=== PATIENT | female | born 1955 | race Caucasian/White ===

== ENCOUNTER → 2016-05-29 | Outpatient (CLI) | payer BC ==
[2016-05-29 14:05] LABS: ALT/SGPT 104 U/L (12-78); AST/SGOT 66 U/L (15-37); BLOOD UREA NITROGEN 12 mg/dl (7-18); BUN/CREATININE RATIO 22.8 (10-20); CALCIUM 9.2 mg/dl (8.5-10.1); CARBON DIOXIDE 28 mmol/L (21-32); CHLORIDE 101 mmol/L (98-107); CHOLESTEROL 191 mg/dl (0-200); CREATININE 0.53 mg/dl (0.60-1.20); GLUCOSE 127 mg/dl (70-99); POTASSIUM 3.5 mmol/L (3.5-5.1); SODIUM 140 mmol/L (136-145)
[2016-05-29 14:16] LABS: HDL CHOLESTEROL 48 mg/dl; LDL CHOLESTEROL CALCULATED 110 mg/dl; TRIGLYCERIDES 166 mg/dl (0-150); VERY LOW DENSITY LIPOPROT CALC 33 mg/dl
== END | disposition home or self-care (01) ==
LOC: C.LABMFLN 10:20
PROVIDERS: ATTEND Family Medicine
DX: I10 Essential (primary) hypertension (principal); E78.00 Pure hypercholesterolemia, unspecified; R74.0 Nonspecific elevation of levels of transaminase and lactic acid dehydrogenase [LDH]

== ENCOUNTER → 2016-10-03 | Outpatient (CLI) | payer BC ==
[2016-10-03 18:31] LABS: ALT/SGPT 136 U/L (12-78); AST/SGOT 124 U/L (15-37); BLOOD UREA NITROGEN 11 mg/dl (7-18); BUN/CREATININE RATIO 18.3 (10-20); CALCIUM 9.4 mg/dl (8.5-10.1); CARBON DIOXIDE 30 mmol/L (21-32); CHLORIDE 104 mmol/L (98-107); CHOLESTEROL 228 mg/dl (0-200); GLUCOSE 105 mg/dl (70-99); POTASSIUM 3.9 mmol/L (3.5-5.1); SODIUM 139 mmol/L (136-145); TRIGLYCERIDES 144 mg/dl (0-150); VERY LOW DENSITY LIPOPROT CALC 29 mg/dl
[2016-10-03 18:33] LABS: ALB/GLOB RATIO 0.9 (0.9-2); ALKALINE PHOSPHATASE 130 U/L (45-117); CHOLESTEROL/HDL RATIO 4.8; HDL CHOLESTEROL 48 mg/dl; LDL CHOLESTEROL CALCULATED 151 mg/dl
[2016-10-04 06:11] LABS: ESTIMATED AVERAGE GLUCOSE 143 mg/dl; HA1C FLAG Normal (Normal)
== END | disposition home or self-care (01) ==
LOC: C.LABMFLN 14:38
PROVIDERS: ATTEND Family Medicine
DX: E78.00 Pure hypercholesterolemia, unspecified (principal); R73.03 Prediabetes; I10 Essential (primary) hypertension

== ENCOUNTER → 2016-10-04 | Outpatient (CLI) | payer BC ==
[2016-10-04 14:11] LABS: URINE APPEARANCE CLOUDY (CLEAR); URINE BILIRUBIN NEG (NEG); URINE COLOR YELLOW; URINE EPITHELIAL CELL AUTO >30 /lpf (0-5); URINE NITRITE NEG (NEG); URINE PH 5.5 (4.5-7.5); URINE SPECIFIC GRAVITY 1.026 (1.000-1.030); UROBILINOGEN NEG (NEG)
[2016-10-04 14:19] LABS: MANUAL MICROSCOPIC REQUIRED? NO; REVIEW REQ? YES
== END | disposition home or self-care (01) ==
LOC: C.LABMFLN 10:32
PROVIDERS: ATTEND Family Medicine
DX: R10.2 Pelvic and perineal pain (principal)

== ENCOUNTER → 2016-11-21 | Outpatient (CLI) | payer BC | END | disposition home or self-care (01) | LOC: C.LABMFLN 11:36 | PROVIDERS: ATTEND Family Medicine | DX: R73.03 Prediabetes (principal); R74.0 Nonspecific elevation of levels of transaminase and lactic acid dehydrogenase [LDH] ==

== ENCOUNTER → 2017-04-20 | Outpatient (CLI) | payer BC ==
[2017-04-20 13:10] LABS: HEMOGLOBIN A1C 6.2 % (4.5-5.6)
[2017-04-20 13:14] LABS: ALBUMIN 3.7 gm/dl (3.4-5.0); ALT/SGPT 126 U/L (12-78); AST/SGOT 88 U/L (15-37); BLOOD UREA NITROGEN 12 mg/dl (7-18); CALCIUM 9.4 mg/dl (8.5-10.1); CARBON DIOXIDE 32 mmol/L (21-32); CHOLESTEROL 336 mg/dl (0-200); CREATININE 0.65 mg/dl (0.60-1.20); GLUCOSE 131 mg/dl (70-99); SODIUM 137 mmol/L (136-145)
[2017-04-20 13:17] LABS: ALKALINE PHOSPHATASE 113 U/L (45-117); LDL CHOLESTEROL CALCULATED 256 mg/dl; TOTAL PROTEIN 8.2 gm/dl (6.4-8.2)
== END | disposition home or self-care (01) ==
LOC: C.LABMFLN 09:13
PROVIDERS: ATTEND Family Medicine
DX: E78.00 Pure hypercholesterolemia, unspecified (principal); R73.03 Prediabetes; R74.0 Nonspecific elevation of levels of transaminase and lactic acid dehydrogenase [LDH]; I10 Essential (primary) hypertension

== ENCOUNTER → 2017-11-12 | Outpatient (CLI) | payer BC ==
[2017-11-12 17:59] LABS: ALBUMIN 3.6 gm/dl (3.4-5.0); ALKALINE PHOSPHATASE 119 U/L (45-117); ALT/SGPT 43 U/L (12-78); AST/SGOT 28 U/L (15-37); BLOOD UREA NITROGEN 12 mg/dl (7-18); CALCIUM 9.3 mg/dl (8.5-10.1); CARBON DIOXIDE 28 mmol/L (21-32); CHOLESTEROL 275 mg/dl (0-200); CREATININE 0.61 mg/dl (0.60-1.20); GLUCOSE 106 mg/dl (70-99); LDL CHOLESTEROL CALCULATED 200 mg/dl; POTASSIUM 4.2 mmol/L (3.5-5.1); SODIUM 139 mmol/L (136-145); TOTAL PROTEIN 7.7 gm/dl (6.4-8.2)
[2017-11-13 05:39] LABS: HEMOGLOBIN A1C 6.1 % (4.5-5.6)
== END | disposition home or self-care (01) ==
LOC: C.LABMFLN 11:12
PROVIDERS: ATTEND Family Medicine
DX: E78.00 Pure hypercholesterolemia, unspecified (principal); R73.03 Prediabetes; R74.0 Nonspecific elevation of levels of transaminase and lactic acid dehydrogenase [LDH]; Z12.31 Encounter for screening mammogram for malignant neoplasm of breast

== ENCOUNTER 2023-04-02 10:05 | Observation (INO) ==
--- NOTE | 2023-03-14 11:14 | PAT Medication Instructions ---
Medication Instructions Date of Service March 14, 2023 Home Medications Medication Instructions Recorded diclofenac sodium 1 % topical gel 4 g topical QID PRN shoulder pain 01/12/22 #200 grams rosuvastatin 20 mg tablet 20 mg PO QPM #90 tabs 07/28/22 sertraline 100 mg tablet 200 mg (2 x 100 mg) PO HS #180 tabs 12/22/22 diclofenac sodium 1 % topical gel 4 g topical QID PRN rosuvastatin 20 mg tablet 20 mg PO QPM sertraline 100 mg tablet 200 mg (2 x 100 mg) PO HS amlodipine 10 mg tablet 10 mg PO QPM calcium polycarbophil 625 mg tablet (FiberCon) 1,250 mg PO QPM clopidogrel 75 mg tablet 75 mg PO QPM omeprazole 20 mg capsule,delayed release 20 mg PO QAM PRN ASK your prescriber and surgeon clopidogrel 75 mg tablet 75 mg PO QPM STOP taking 24 hours before surgery diclofenac sodium 1 % topical gel 4 g topical QID PRN Take morning of surgery With a small sip of water, OTHERWISE NOTHING TO EAT OR DRINK AFTER MIDNIGHT: omeprazole 20 mg capsule,delayed release 20 mg PO QAM PRN(if needed) Take evening before surgery rosuvastatin 20 mg tablet 20 mg PO QPM sertraline 100 mg tablet 200 mg (2 x 100 mg) PO HS amlodipine 10 mg tablet 10 mg PO QPM calcium polycarbophil 625 mg tablet (FiberCon) 1,250 mg PO QPM Other Notes If you have any questions please call us at [phone] or [phone] or [phone] or [phone]
--- NOTE | 2023-03-21 09:24 | Anesthesiology Consultation ---
Date of Service March 21, 2023 Assessment & Plan (1) Encounter for pre-operative examination: Chart Review Chart Review: Acceptable Risk for Surgery (pending PCP clearance and response regarding ECHO ) and Patient seen in Pre Admission Testing - Awaiting PCP clearance 03/27/23 ([place]); did write workload note to PCP regarding ordering ECHO for murmur - Patient is not an ideal OPJ candidate (currently 23 hour obs) Per [facility] appt on 03/21/23, patient Covid positive 03/06/23 (with home test)- symptoms resolved per patient at [facility] appt 03/21/23. Will leave to surgeon's discretion if preop Covid testing needed Teaching & Discussion Pre-Anesthesia Teaching/Discussion Notes: Instructed NPO after midnight before surgery,except medications with 15 cc of water. Medication instructions provided according to the [facility] guidelines. History Surgery Operation Date: 04/04/23 09:55 Proposed Procedures p Right Total Shoulder Arthroplasty with Subacromial Decompression, Distal Clavicle Excision and Biceps Tenodesis - Jason Mann MD Height/Weight Height: 5 ft 4 in Weight: 87 kg Allergies Allergy/AdvReac Type Severity Reaction Status Date / Time No Known Drug Allergies Allergy Unknown Verified 03/14/23 10:03 Medications Home Medications Medication Instructions Recorded Confirmed Last Taken diclofenac sodium 1 % topical gel 4 g topical QID PRN shoulder pain 01/12/22 03/14/23 Unknown #200 grams rosuvastatin 20 mg tablet 20 mg PO QPM #90 tabs 07/28/22 03/14/23 Unknown sertraline 100 mg tablet 200 mg (2 x 100 mg) PO HS #180 tabs 12/22/22 03/14/23 Unknown amlodipine 10 mg tablet 10 mg PO QPM 03/14/23 03/14/23 Unknown calcium polycarbophil 625 mg 1,250 mg PO QPM 03/14/23 03/14/23 Unknown tablet (FiberCon) clopidogrel 75 mg tablet 75 mg PO QPM 03/14/23 03/14/23 Unknown omeprazole 20 mg capsule,delayed 20 mg PO QAM PRN gerd 03/14/23 03/14/23 Unknown release Past Medical History Medical History COVID-19 03/06/23 + home test. Headache, fever, bodyaches, chills, diarrhea, congestion, fatigue- symptoms resolved Osteoarthritis GERD (gastroesophageal reflux disease) Well controlled and stable History of cervical cancer dx'd 1994. S/p trachelectomy and later had hysterectomy Anxiety History of CVA (cerebrovascular accident) 1996. no residual. Benign essential hypertension Depression Hypercholesterolemia Lumbar radiculopathy Exercise / Class Metabolic Activity II 4-5 Yardwork/Stairs/Walk up hill (one flight of stairs - no chest pain or SOB ) Past Family History Family History Mother Glaucoma Hyperlipidemia Father Cancer Past Surgical History Surgical History Status post trachelectomy History of hysterectomy History of esophagogastroduodenoscopy (EGD) History of colonoscopy Hx of breast reconstruction History of back surgery Past Anesthesia History No Hx of Anesthesia Complications and No Family Hx of Anesthesia Complications History of PONV No Hx of Motion Sickness and History of PONV (remote history during lumbar surgery early - no issues with subsequent surgeries ) Social History Smoking Status: Current every day smoker Smoking cigarettes per day: was 10-12 cigs/day- but trying to quit- no smoking since 03/18/23 Do You Dip or Chew Tobacco: No Hx Alcohol Use: Yes Alcohol type: beer and hard liquor alcohol intake frequency: a few times a week Hx Substance Use: No substance use type: does not use Review of Systems - Hx of snoring- no hx of sleep study Patient denies chest pain, shortness of breath, dyspnea on exertion, cough, wheezing, palpitations. No hx of seizures, [place]. No hx of blood clots or blood transfusions Physical Exam Vital Signs VITALS BP 119/80 P 69 TEMP 98.2 SP02 95% RESP 16 Constitutional no acute distress ENMT Mouth: no TMJ clicking Thyromental Distance: < 3.5 Finger Breadths (3.0) Mallampati Class: I Missing molars Crowns to molars Neck + limited neck extension Respiratory normal respiratory effort; no respiratory distress Auscultation: lungs clear to auscultation bilaterally; no wheezes Cardiovascular Rate/Rhythm: regular rate and regular rhythm Heart Sounds: + murmur (II/ murmur ) Vessels: no carotid bruit Musculoskeletal Spine: + pain with cervical ROM (stiffness ) Extremities: extremities normal to inspection Psychiatric Orientation: alert Lab Results Anesthesia Preop Results Results Anesthesia Widget: WBC 6.50 K/ul (4.8-10.8) 03/21/23 Hgb 14.6 g/dl (12.0-16.0) 03/21/23 Hct 42.6 % (37.0-47.0) 03/21/23 Plt 197 K/uL (130-400) 03/21/23 Na 139 mmol/L (136-145) 03/21/23 K 4.6 mmol/L (3.5-5.1) 03/21/23 Cl 101 mmol/L (98-107) 03/21/23 CO2 30 mmol/L (21-32) 03/21/23 BUN 15 mg/dl (6-23) 03/21/23 Creat 0.57 mg/dl (0.6-1.2) L 03/21/23 Glucose Level 109 mg/dl (70-99(Fasting)) H 03/21/23 PT 10.8 Seconds (9.0-12.0) 03/21/23 PTT 26 Seconds (21-31) 03/21/23 INR 1.0 (0.9-1.1) 03/21/23 Urine Color Yellow 03/21/23 Urine Appearance Clear (Clear) 03/21/23 Urine pH 5.0 (4.5-7.5) 03/21/23 Urine Specific Solomon 1.022 (1.000-1.030) 03/21/23 Urine Protein Negative (Negative) 03/21/23 Urine Glucose (UA) Negative (Negative) 03/21/23 Urine Ketones Trace (Negative) H 03/21/23 Urine Blood Negative (Negative) 03/21/23 Urine Nitrite Negative (Negative) 03/21/23 Urine Bilirubin Negative (Negative) 03/21/23 Urine Urobilinogen Negative (Negative) 03/21/23 Urine Leukocyte Esterase Negative (Negative) 03/21/23 Blood Type O Positive 03/21/23 Antibody Screen NEGATIVE 03/21/23 Testing Electrocardiogram Date: 03/21/23 Findings: + NSR @ (69bpm ) LAFB Minimal voltage criteria for LVH, may be normal variant Chest X-Ray Date: 03/21/23 Findings: + NAD
--- NOTE | 2023-04-01 18:29 | History & Physical Report ---
Date of Service April 01, 2023 Assessment & Plan (1) Primary osteoarthritis, right shoulder: Plan: Treatment options discussed with the patient. They failed conservative measures and would like to proceed with surgical management. Risks, benefits and alternatives to surgery including but not limited to infection, DVT, pain, stiffness, need for revision surgery, damage to blood vessels, damage to nerves, PE, , were discussed with the patient and they wish to proceed. Plan for right total shoulder arthroplasty, open distal clavicle excision and subacromial decompression scheduled for [facility] on April [address] Mann. Home health therapy versus outpatient physical therapy postop. All questions answered. Patient will follow-up postoperatively. History of Present Illness Chief Complaint: Right shoulder pain Primary Care Provider: Baltazar Gandhi MD 68yo female with PMHx significant for hx of CVA, HTN, high cholesterol, HTN, hx of cervical Ca who presents with ongoing right shoulder pain. Pain is interfering with her daily activity. She has failed conservative measures and would like to proceed with surgical management. Patient denies headaches, sweats, fevers, chills, double vision, blurred vision, cough, sore throat, dysphagia, chest pain, sob, wheezing, n/v/d/c, numbness, tingling, fatigue, urinary symptoms, mood disorders. ROS positive for right shoulder pain and stiffness. Allergies Allergy/AdvReac Type Severity Reaction Status Date / Time No Known Drug Allergies Allergy Unknown Verified 03/27/23 09:12 Home Medications Medication Instructions Recorded Confirmed Type diclofenac sodium 1 % topical gel 4 g topical QID PRN shoulder pain 01/12/22 03/27/23 Rx #200 grams rosuvastatin 20 mg tablet 20 mg PO QPM #90 tabs 07/28/22 03/27/23 Rx sertraline 100 mg tablet 200 mg (2 x 100 mg) PO HS #180 tabs 12/22/22 03/27/23 Rx amlodipine 10 mg tablet 10 mg PO QPM 03/14/23 03/27/23 History calcium polycarbophil 625 mg 1,250 mg PO QPM 03/14/23 03/27/23 History tablet (FiberCon) clopidogrel 75 mg tablet 75 mg PO QPM 03/14/23 03/27/23 History omeprazole 20 mg capsule,delayed 20 mg PO QAM PRN gerd 03/14/23 03/27/23 History release Past Med/Surg History Medical History Heart murmur COVID-19 Osteoarthritis GERD (gastroesophageal reflux disease) History of cervical cancer Anxiety History of CVA (cerebrovascular accident) Benign essential hypertension Depression Hypercholesterolemia Lumbar radiculopathy Surgical History Status post trachelectomy History of hysterectomy History of esophagogastroduodenoscopy (EGD) History of colonoscopy Hx of breast reconstruction History of back surgery Family History Mother Glaucoma Hyperlipidemia Father Cancer Social History Smoking Status: Current every day smoker Tobacco Type: Cigarettes Cigarettes Per Day: was 10-12 cigs/day- but trying to quit- no smoking since 03/18/23; Second Hand Exposure: No; Do You Dip or Chew Tobacco: No; Tobacco Cessation Education Requested by Patient: No Hx Alcohol Use: Yes Alcohol type: beer and hard liquor Alcohol Intake Frequency: 2-3 x/Week Hx Substance Use: No Preferred Language: Bengali Communication Ability: Effective Visual Impairment: No Limitations Hearing Ability: Normal Digital Music Instructor Required: No Beliefs That Will Affect Care: None marital status: Single Current Living Situation: Other Current Living Situation Comment: Friend current occupational status: retired How many Children do You have: 2 How many Children do You have Comment: 2 Feels Safe at Home: Yes Safety Concerns: Feels Safe At This Time Childhood Exposure to Second-Hand Smoke: No Diet: regular caffeine: Yes Dental Care, Regularly: Yes Physical Activity Frequency: 1-2 Times per Week Physical Activity Frequency Comment: moderate housework, gardening Seatbelt Use: always Sunscreen Use: No Assistive Devices: None Review of Systems All systems reviewed & are unremarkable except as noted in HPI & below Physical Exam Constitutional: well developed and well nourished; no acute distress Eyes: PERRL, conjunctivae normal, anicteric sclerae ENMT: external ear and nose normal, oropharynx normal Neck: trachea midline, no thyromegaly Respiratory: normal respiratory effort, lungs clear to auscultation Cardiovascular: RRR, no murmur, no edema Musculoskeletal: Right shoulder: Diffuse tenderness. There is pain and stiffness with range of motion. 80 degrees of abduction, 160 degrees of forward flexion, 30 degrees of external rotation. Normal strength. Skin: no rashes, warm and dry Neurologic: patellar DTR's 2+ bilat, sensation intact Psychiatric: A+Ox3, euthymic affect Results & Data Diagnostic Findings Right shoulder radiographs demonstrate severe shoulder osteoarthritis, [id number] glenohumeral joint. There is AC joint arthritis as well as subacromial bone spurring contributing to impingement. MRI demonstrates an intact rotator cuff.
[~2023-04-02 10:05] MED LIST: ACETAMINOPHEN 500 MG TAB PO SCH; BUPIVACAINE 0.5 % 5 MG/1 ML PF 10ML VIAL ONE; CeleBREX 200 MG CAP PO SCH; DEXAMETHASONE SOD INJ 4 MG/ML VIAL ONE; FAMOTIDINE 20 MG TAB PO SCH; GABAPENTIN 300 MG CAP PO SCH; GLYCOPYRROLATE 0.2 MG/ML VIAL ONE; KETOROLAC 30 MG/ML VIAL ONE; LIDOCAINE 2% 2 ML VIAL/AMP(20MG/ML) INFIL ONE; LR 15ML/HR IV SCH; LR 60ML/HR IV SCH; METOCLOPRAMIDE HCL 10 MG TABLET PO SCH; MIDAZOLAM HCL 1 MG/ML 2ML VIAL ONE; ONDANSETRON INJ 2 MG/ML 2 ML VIAL ONE; PROPOFOL IV EMULSION 10 MG/ML 20 ML VIAL IV ONE; ROCURONIUM BROMIDE 10 MG/ML 5 ML VIAL IV ONE; SUGAMMADEX SODIUM 200 MG/2 ML VIAL IV ONE; TRANEXAMIC ACID 1,000 MG **IV Intra-op IV SCH; TRANEXAMIC ACID 1,000 MG x 1 **TOPICAL Use Intraop TOP SCH; ceFAZolin 2000MG 2,000 MG/15 ML SYR IV SCH; dexAMETHasone**PF** 10 MG/ML VIAL IV SCH; fentaNYL citrate PF 100 MCG/2 ML VIAL ONE
[2023-04-02] MEDS ORDERED: EpINEphrine HCL INJ 1 MG/ML 1ML SYRINGE IR ONE (10:18)
[2023-04-02] MEDS ORDERED: PROMETHAZINE HCL 12.5 MG in SODIUM CHLORIDE 0.9% 50 ML IV PRN (11:09)
[2023-04-02] MEDS ORDERED: ePHEDrine sulfate 50 MG/ML AMP IV PRN (11:09)
[2023-04-02] MEDS ORDERED: ONDANSETRON INJ 2 MG/ML 2 ML VIAL IV PRN ×2 (11:09→16:23)
[2023-04-02] MEDS ORDERED: fentaNYL citrate PF 100 MCG/2 ML VIAL IV PRN (11:09)
[2023-04-02] MEDS ORDERED: ATROPINE SULFATE 0.1 MG/ML 10ML SYR IV PRN (11:09)
--- NOTE | 2023-04-02 11:29 | History & Physical Bridge Note ---
Date of Service April 02, 2023 History & Physical Bridge Note I have examined the patient, reviewed the History & Physical and in the interval since the performance of the History & Physical I have noted the following changes of clinical significance: no changes noted
[2023-04-02] MEDS ORDERED: TRANEXAMIC ACID / 0.7% NACL 1,000 MG/100 ML BAG IV ONE ×3 (11:38→11:44)
--- NOTE | 2023-04-02 15:13 | Operative Report ---
Post Operative Report Pre & Post Diagnosis Operation Date: 04/02/23 12:05 Pre-Op Diagnosis: Right Shoulder Osteoarthritis, Shoulder Impingement Post-Op Diagnosis: Right Shoulder Osteoarthritis, Shoulder Impingement I identified the patient and participated in the time-out.: Yes Procedure Operation Date: 04/02/23 12:05 Actual Procedures p Right Total Shoulder Arthroplasty with Subacromial Decompression, Distal Clavicle Excision including removal loose body AC joint and Biceps Tenodesis(Right) - Jason Mann MD Surgeon Jason Mann MD Shipping/Receiving Manager Jamarcus WAYNE Estimated Blood Loss 100 Findings Consistent with Post-Op Diagnosis Specimens humeral head and distal clavicle and loose body Drains 2 Hemovac Anesthesia Type General Regional Complications none Disposition Disposition: Recovery Room Indications 68-year female with chronic bilateral shoulder pain failed conservative management. Right shoulder specifically has severe osteoarthritis [id number] glenohumeral joint with concentric type A wear pattern with very large inferior humeral osteophytes and a type III acromion with advanced AC joint osteoarthritis and biceps tendinopathy.. Description of Procedure patient was taken to the operating room anesthetized under regional block and general anesthetic. Patient was placed in a 40 degree beach chair position with a foam headrest protective eyewear all extremities padded teds and SCDs were placed. A towel roll was placed on the medial border of the scapula of the Right upper extremity. The arm was examined and range of motion demonstrated 0 degrees external rotation and 70 degrees abduction and 120 degrees forward flexion. An anterior deltopectoral approach was performed. Longitudinal incision was made in deltopectoral interval. Skin incised sharply and subcutaneous flaps elevated. The deltopectoral interval was identified. The cephalic vein demonstrated Normal appearing vein. The cephalic vein was retracted laterally with the deltoid. The upper centimeter of the pectoralis was released for inferior exposure. Biceps tendon demonstrated Chronic scar tenosynovitis around the biceps and large spurs in the bicipital groove The biceps was tenodesed to the pectoralis tendon using #2 FiberWire [id number] and whipstitch type sutures. Proximal biceps was resected. Rotator cuff findings demonstrated intact rotator cuff with bursitis and subacromial impingement. The circumflex vessels were tied off with silk ties and divided laterally. The subscapularis muscle fibers were split at the level of circumflex vessels and released off the inferior capsule with a Kitner elevator and then a blunt Hohmann retractor was placed protect the axillary nerve. The rotator interval was released down to the level of the glenoid. The subscapularis tendon was taken down with a transtendinous incision leaving a cuff of tissue for repair on the lesser tuberosity. The humeral head findings demonstrated Some flattening of the humeral head with massive inferior humeral osteophytes extending from anterior to posterior. There was some smaller circumferential osteophytes as well. Glenohumeral joint was eburnated [id number] The inferior osteophytes were resected using an artist chisel and rongeur. although remaining smaller osteophytes removed with a rongeur. The inferior capsule was released off the bone subperiosteally using a Grande elevator. A #1 Vicryl traction suture was placed into the free edge of the subscapularis tendon. A Fukuda retractor was placed into the joint. Capsule was released with Farley scissors down to the glenoid and off of the anterior glenoid to the rotator interval which was released to meet the capsular release creating a 360 degree release of subscapularis tendon. An anterior Bankart retractor was placed. The glenoid and labral findings demonstrated Completely eburnated bone with just a crescent of anterior superior articular cartilage remaining. An anterior-inferior and posterior inferior capsule release was performed electrocautery on bone and a Grande elevator. The axillary nerve was protected inferiorly with the blunt Hohmann. Attention was taken back to the humeral head. Humeral head was exposed with extension and external rotation. The oscillating saw was used to make an anatomic neck cut removing the articular surface. All the circumferential remaining osteophytes were trimmed with a rongeur. The humerus was sized for a 1 nucleus and a43 humeral head. The bone was assessed with a thumb press test and there was solid cancellous bone. The guide for the nucleus was placed centrally and then the guidepin was placed. The surface reamer was used followed by the central drill for the nucleus. The trial nucleus was inserted and the cut protector was placed. The humerus was retracted posterior to the glenoid . A Tornier retractor ,Hohmann retractors as well as an anterior Bankart retractor were placed. The glenoid was fully exposed. The Tornier Cortiloc glenoid was used. The small 30 radius size was chosen. The central drill hole was made followed by the reamer for the glenoid followed by widening the central hole for the central post. The guide for the peripheral drill holes was placed and the drill holes were made. The trial reduction performed with stable fixation. The trial removed and the glenoid copiously irrigated with pulsed saline solution. The drill holes were packed with epinephrine-soaked tampons. The Palacos G cement was vacuum mixed. The Tornier small 30 radius Cortiloc glenoid component was then cemented in position after drying the glenoid after removal of the tampons. Fixation was excellent. All excess cement was cleared. When the cement cured we moved onto removing the cut protector doing a trial reduction and I had to upsize the humeral head to a 44 x 21 soft tissue balancing head to get good stability through full range of motion. Soft tissue tension on the subscapularis tendon was satisfactory. The trial components of the humeral head were removed and the 3 drill holes were made in the harder bone in the biceps groove area and transosseous #5 FiberWire sutures were placed. Then the humeral cut surface was reexposed with retractors And to enhance the press-fit I did add some cancellous bone from the humeral head to pack around the insertion site and then the size 1 nucleus was impacted leaving it slightly proud until [id number] mm x 21 mm simplicity soft tissue balancing humeral head humeral head was placed into the nucleus and then both were impacted into the humerus with a tight press-fit. The humerus was reduced to the glenoid. The stability was verified. The joint was then irrigated with xperience solution.The subscapularis tendon was repaired with transosseous Harsh-Arie sutures using [id number] #2 FiberWire sutures. Lateral row fixation was performed with interrupted [id number] #2 FiberWire sutures and rotator interval was closed with #2 FiberWire sutures. Range of motion demonstrated 150 degrees forward flexion 105 degrees of abduction and 30 to 40 degrees of external rotation without tension on repair. The pectoralis was repaired with [id number] #2 FiberWire sutures placing sutures back through the biceps tendon to reinforce the tenodesis.Wound was irrigated and saline sponge was placed into the incisional site. Transverse incision was then made over the acromioclavicular joint off the lateral aspect of the acromion. Skin incised sharply and Subcutaneous flaps were elevated subcutaneous bleeders were cauterized. a transverse incision was made through the delto- trapezius fascia reflecting the deltoid subperiosteally off the anterior aspect the acromion and anteriorly and posteriorly around the 1 cm distal clavicle. There were acromioclavicular spurs noted and narrowed AC joint with arthritis close to if not [id number] there and type III acromion. Small Hohmann retractors were placed and 1 cm distal clavicle was resected with the oscillating saw. The oscillating saw was then used to resect the anterior spur on the acromion process making it a flat smooth undersurface which was further rasped with Tiemann rasp. After further irrigation the deltoid trapezius interval was repaired with interrupted [id number] #2 FiberWire enriquez tures with 2 transosseous sutures through the anterior acromion repairing that portion of the repair. The repair was solid with passive range of motion. Attention was taken back to the deltopectoral incision which was irrigated out again with saline solution and 2 Hemovac drains were placed and the deltopectoral interval was closed with interrupted [id number] #1 Vicryl sutures. The subcutaneous tissues Both incisions were repaired with 2-0 Vicryl sutures and the skin was closed with adan. Sterile dressings were applied and a sling immobilizer. The patient tolerated the procedure well. Jamarcus WAYNE acted as business assistant throughout the procedure. He functioned as business assistant assisting in all aspects of the procedure including patient positioning prepping draping, arm positioning, soft tissue retraction,, instrument management, subcutaneous and skin closure and postop care the patient as well. I attest to the content of the Intraoperative Record and any orders documented therein. Any exceptions are noted below.
--- NOTE | 2023-04-02 15:49 | Anesthesiology Progress Note ---
Date of Service April 02, 2023 Anesthesia Post Procedure Vital Signs Vital Signs: Temp Pulse Pulse Pulse Resp BP Pulse Ox 04/02/23 15:40 36.5 C 70 17 142/72 H 95 04/02/23 15:30 71 20 138/72 96 04/02/23 15:20 74 17 139/70 99 04/02/23 15:16 68 04/02/23 15:10 36.1 C L 68 14 115/69 98 04/02/23 10:37 36.8 C 73 24 134/72 97 O2 Del Method O2 Flow Rate 04/02/23 15:40 Nasal Cannula 2 04/02/23 15:30 Oxymask 5 04/02/23 15:20 Oxymask 11 04/02/23 15:16 04/02/23 15:10 Oxymask 11 04/02/23 10:37 Room Air Pain Intensity Right Shoulder: Pain Intensity: 5 Transfer of Care Handoff Completed per policy Notes Mental Status: alert / awake / arousable and participated in evaluation Patient Amnestic to Procedure: Yes Nausea / Vomiting: adequately controlled Pain: adequately controlled Airway Patency, RR, SpO2: stable & adequate BP & HR: stable & adequate Hydration State: stable & adequate Anesthetic Complications: no major complications apparent
--- NOTE | 2023-04-02 15:52 | XRay Report ---
XR shoulder RT min 2V routine CLINICAL HISTORY: Post shoulder surgery TECHNIQUE: 3 views of the right shoulder were obtained. Comparison: Comparison is made to chest radiograph 03/21/2023 FINDINGS: Patient is status post shoulder arthroplasty with expected postsurgical changes including soft tissue swelling and subcutaneous emphysema. No periarticular lucency or hardware fracture is seen. IMPRESSION: Expected postoperative appearance status post placement of shoulder arthroplasty. ACT 112: Negative or not required by law. Electronically signed by: Erick Dumont M.D. 04/02/2023 3:51 PM
[2023-04-02] MEDS ORDERED: bisacodyL 10 MG SUPP PR PRN (16:23)
[2023-04-02] MEDS ORDERED: HYDROmorphone INJ 0.5 MG/0.5 ML SYR IV PRN (16:23)
[2023-04-02] MEDS ORDERED: NALOXONE HCL 0.4 MG/1 ML VIAL/CARP IV PRN (16:23)
[2023-04-02] MEDS ORDERED: METOCLOPRAMIDE HCL INJ 5 MG/ML 2 ML VIAL IV PRN (16:23)
[2023-04-02] MEDS ORDERED: oxyCODONE HCL IR 5 MG TAB (IMMEDIATE RELEASE) PO PRN (16:23)
[2023-04-02] MEDS ORDERED: MAGNESIUM HYDROXIDE SUSP 30 ML UDC PO PRN (16:23)
[2023-04-02] MEDS ORDERED: PANTOprazole 40 MG TAB PO PRN (16:30)
[2023-04-02] MEDS: SODIUM CHLORIDE 0.9% 1,000 ML IV SCH (16:36)
--- NOTE | 2023-04-02 18:22 | Hospitalist Consultation ---
Date of Consultation April 02, 2023 Assessment & Plan (1) S/P shoulder surgery: Right total shoulder arthroplasty with subacromial decompression with Dr. Mann on 04/02/23 Right shoulder x-ray showed expected postoperative appearance s/p placement of shoulder arthroplasty EKG NSR at 60 bpm; QTc 416 Perioperative antibiotics, pain management, DVT PPx, and fluids per primary team Patient reports that her pain is well-managed at time of consult Agree with a.m. CBC, BMP, we will follow PT/OT consulted (2) Dyslipidemia: Continue rosuvastatin (3) Chronic GERD: Continue omeprazole, or Protonix equivalent (4) Depression: Continue sertraline (5) Benign essential hypertension: Continue amlodipine (6) History of CVA (cerebrovascular accident): In 1996 Continue Plavix for remote history of TIA/CVD Plan Agree with medical decision making: Disposition: MedSurg Regular diet VTE PPx: SCDs/teds Thank you for allowing us to participate in the care of this patient, please reach out with any questions or concerns. History of Present Illness Reason for Consultation: Medical management Requesting Physician: Jason Mann MD Attending Physician: Jason Mann MD History of Present Illness Sofi is a pleasant 68-year-old female with PMH of depression, CVD, HTN, prediabetes, GERD, shingles, TMJ, and OA of the right shoulder. She presented for a right total shoulder arthroplasty with subacromial decompression with Dr. Salvador on 04/02/2023. Per review of operative note, EBL was listed as 100 cc, general regional anesthesia was used, and there were no intraoperative complications. Patient rates her right arm pain 2/10 at time of consult; she describes it as dull, achy, constant. No radiation up towards the neck. She says it is mainly right arm pressure, like a blood pressure cuff squeezing. She also endorses tingling in her right fingers. She is not taking any medications today other than what she was given in the hospital; she takes most of her medications at night. She reports that she has been eating and drinking well since waking up after her surgery. She also reports she has been going to the bathroom okay. No at home oxygen usage; no CPAP. Patient declines pain medication at the time of consult. Per review of patient vitals, patient has been stable postop; SpO2 96% on 2L NC. ROS: Patient endorses lightheadedness when standing, and R shoulder pressure. Patient denies fever, chills, sweating, CP, pleuritic CP, SOB, abdominal pain, N/V/D, or numbness/tingling/pain in the legs or right arm. Allergies Allergy/AdvReac Type Severity Reaction Status Date / Time No Known Drug Allergies Allergy Unknown Verified 04/02/23 10:34 Home Medications Medication Instructions Recorded Confirmed Type diclofenac sodium 1 % topical gel 4 g topical QID PRN shoulder pain 01/12/22 04/02/23 Rx #200 grams rosuvastatin 20 mg tablet 20 mg PO QPM #90 tabs 07/28/22 04/02/23 Rx sertraline 100 mg tablet 200 mg (2 x 100 mg) PO HS #180 tabs 12/22/22 04/02/23 Rx amlodipine 10 mg tablet 10 mg PO QPM 03/14/23 04/02/23 History calcium polycarbophil 625 mg 1,250 mg PO QPM 03/14/23 04/02/23 History tablet (FiberCon) clopidogrel 75 mg tablet 75 mg PO QPM 03/14/23 04/02/23 History omeprazole 20 mg capsule,delayed 20 mg PO QAM PRN gerd 03/14/23 04/02/23 History release Patient History Medical History (Updated 04/02/23 @ 19:15 by Jason Sargent PA-C) Heart murmur COVID-19 03/06/23 + home test. Headache, fever, bodyaches, chills, diarrhea, congestion, fatigue- symptoms resolved Osteoarthritis GERD (gastroesophageal reflux disease) Well controlled and stable History of cervical cancer dx'd 1994. S/p trachelectomy and later had hysterectomy Anxiety History of CVA (cerebrovascular accident) 1996. no residual. Benign essential hypertension Depression Hypercholesterolemia Lumbar radiculopathy Surgical History (Updated 04/02/23 @ 18:36 by Jason Sargent PA-C) Status post trachelectomy History of hysterectomy History of esophagogastroduodenoscopy (EGD) History of colonoscopy Hx of breast reconstruction History of back surgery Family History Mother Glaucoma Hyperlipidemia Father Cancer Social History Smoking Status: Current every day smoker Tobacco Type: Cigarettes Cigarettes Per Day: was 10-12 cigs/day- but trying to quit- no smoking since 03/18/23; Second Hand Exposure: No; Do You Dip or Chew Tobacco: No; Tobacco Cessation Education Requested by Patient: No Hx Alcohol Use: Yes Alcohol type: beer and hard liquor Alcohol Intake Frequency: 2-3 x/Week Hx Substance Use: No Preferred Language: Spanish Communication Ability: Effective Visual Impairment: No Limitations Hearing Ability: Normal Prescription Eyeglass Maker Required: No Beliefs That Will Affect Care: None marital status: Single Current Living Situation: Other Current Living Situation Comment: Friend current occupational status: retired How many Children do You have: 2 How many Children do You have Comment: 2 Feels Safe at Home: Yes Safety Concerns: Feels Safe At This Time Childhood Exposure to Second-Hand Smoke: No Diet: regular caffeine: Yes Dental Care, Regularly: Yes Physical Activity Frequency: 1-2 Times per Week Physical Activity Frequency Comment: moderate housework, gardening Seatbelt Use: always Sunscreen Use: No Assistive Devices: None Review of Systems Review of Systems: See HPI above Physical Exam Physical Exam: General: no acute distress; pleasant affect; non-toxic appearing; well- nourished; cooperative HEENT: normocephalic, atraumatic; no scleral icterus; PERRLA w/ EOMs intact; moist mucus membrane; vision and hearing grossly intact Neck: supple; no lymphadenopathy; trachea midline Skin: warm, dry without signs of tenting; no cyanosis; no rashes, bruising, lesions, or erythema noted CV: chest wall NTP; RRR; S1/S2 normal; no new murmurs/rubs/gallops; pulses intact and symmetric at radial, DP, and PT Lungs: no acute respiratory distress; symmetrical chest wall expansion; clear breath sounds across all lung myers w/o adventitious sounds; no wheezing ABD: Soft, NTP; BS present; no rebound/guarding RUE: Patient demonstrates ability to wiggle fingers, flex/extend wrist, and bend at the elbow; sensation mildly diminished in the right fingers compared to the left fingers; neurovascularly intact MSK: no tics or fasciculations; no edema noted in the LEs b/l Neuro: A&Ox3; normal mood and affect; fluent speech; no focal deficits Results & Data Results & Data Vital Signs (Past 12 Hours) Vital Signs Temp Pulse Pulse Pulse Resp BP Pulse Ox 04/02/23 17:20 37.1 C 74 16 130/71 95 04/02/23 16:50 36.9 C 71 16 132/73 96 04/02/23 16:30 04/02/23 16:23 36.7 C 71 16 122/71 94 04/02/23 16:05 70 19 132/65 96 04/02/23 15:50 71 21 131/68 97 04/02/23 15:40 36.5 C 70 17 142/72 H 95 04/02/23 15:30 71 20 138/72 96 04/02/23 15:20 74 17 139/70 99 04/02/23 15:16 68 04/02/23 15:10 36.1 C L 68 14 115/69 98 04/02/23 10:37 36.8 C 73 24 134/72 97 O2 Del Method O2 Flow Rate 04/02/23 17:20 Nasal Cannula 2 04/02/23 16:50 Room Air 04/02/23 16:30 Nasal Cannula 2 04/02/23 16:23 Nasal Cannula 2 04/02/23 16:05 Nasal Cannula 2 04/02/23 15:50 Nasal Cannula 2 04/02/23 15:40 Nasal Cannula 2 04/02/23 15:30 Oxymask 5 04/02/23 15:20 Oxymask 11 04/02/23 15:16 04/02/23 15:10 Oxymask 11 04/02/23 10:37 Room Air Diagnostic Findings Shoulder X-Ray 04/02/23 15:12 XR shoulder RT min 2V routine CLINICAL HISTORY: Post shoulder surgery TECHNIQUE: 3 views of the right shoulder were obtained. Comparison: Comparison is made to chest radiograph 03/21/2023 FINDINGS: Patient is status post shoulder arthroplasty with expected postsurgical changes including soft tissue swelling and subcutaneous emphysema. No periarticular lucency or hardware fracture is seen. IMPRESSION: Expected postoperative appearance status post placement of shoulder arthroplasty. ACT 112: Negative or not required by law. Electronically signed by: Erick Dumont M.D. 04/02/2023 3:51 PM PG Care Time/CCT Total # of Minutes Spent Total Time Spent with Patient: Total time spent is greater than 50% in coordination of care (as documented) at patient's floor/unit and/or counseling patient: Coding [place] [address] IN/OBS CONSULT LVL 2,35M Patient Type Established Medical Decision Making Low Complexity Diagnoses S/P shoulder surgery Z98.890 Dyslipidemia E78.5 Chronic GERD K21.9 Depression F32.9 Benign essential hypertension I10 History of CVA (cerebrovascular accident) Z86.73
[2023-04-02] MEDS: DOCUSATE SODIUM 100 MG CAP PO SCH (20:11)
[2023-04-02] MEDS: ceFAZolin 2000MG 2,000 MG/15 ML SYR IV SCH (20:18)
[2023-04-02] MEDS ORDERED: SERTRALINE HCL 100 MG TABLET PO SCH (21:00)
[2023-04-02] MEDS ORDERED: SENNA 8.6 MG TAB PO SCH (21:00)
[2023-04-02] MEDS ORDERED: CALCIUM POLYCARBOPHIL 625MG TAB PO SCH (21:00)
[2023-04-02] MEDS ORDERED: ROSUVASTATIN CALCIUM 20 MG TAB PO SCH (21:00)
[2023-04-02] MEDS: ACETAMINOPHEN 500 MG TAB PO SCH (21:57)
[2023-04-03] MEDS: SODIUM CHLORIDE 0.9% 1,000 ML IV SCH (02:46)
[2023-04-03] MEDS: ceFAZolin 2000MG 2,000 MG/15 ML SYR IV SCH (05:23)
[2023-04-03] MEDS: ACETAMINOPHEN 500 MG TAB PO SCH (05:23)
--- NOTE | 2023-04-03 06:28 | Electrocardiogram Report ---
Test Reason : Blood Pressure : / mmHG Vent. Rate : 068 BPM Atrial Rate : 068 BPM P-R Int : 188 ms QRS Dur : 102 ms QT Int : 392 ms P-R-T Axes : 060 -33 040 degrees QTc Int : 416 ms Normal sinus rhythm Left axis deviation Incomplete right bundle branch block Minimal voltage criteria for LVH, may be normal variant Nonspecific T wave abnormality Abnormal ECG When compared with ECG of 21-MAR-2023 09:10, Nonspecific T wave abnormality now evident in Inferior leads Nonspecific T wave abnormality, worse in Anterolateral leads Confirmed by Bahman Kate ([id number]) on 04/03/2023 6:28:29 AM Referred By: Jason Mann Confirmed By:Bahman Kate
[2023-04-03 06:35] LABS: Basophils # (auto) 0.01 K/uL (0.00-0.20); Basophils % (auto) 0.1 %; Eosinophils # (auto) 0.01 K/uL (0.00-0.50); Eosinophils % (auto) 0.1 %; Hematocrit (blood only) 32.5 % (37.0-47.0); Hemoglobin 11.3 g/dl (12.0-16.0); Immature Granulocytes # (auto) 0.03 K/uL (0.01-0.20); Immature Granulocytes % (auto) 0.4 %; Lymphocytes # (auto) 1.17 K/uL (1.20-3.40); Lymphocytes % (auto) 15.8 %; Mean Corpuscular Hemoglobin 28.8 pg (25.0-34.0); Mean Corpuscular Hgb Conc 34.8 g/dL (32.0-36.0); Mean Corpuscular Volume 82.7 fL (80.0-100.0); Mean Platelet Volume 9.7 fL (9.4-12.4); Monocytes # (auto) 0.56 K/uL (0.11-0.59); Monocytes % (auto) 7.6 %; Neutrophils # (auto) 5.61 K/uL (1.40-6.50); Platelet Count 156 K/uL (130-400); RDW Coefficient of Variation 11.8 % (11.5-14.5); RDW Standard Deviation 35.6 fL (36.4-46.3); Red Blood Count 3.93 M/uL (4.20-5.40); White Blood Count 7.39 K/ul (4.8-10.8)
[2023-04-03 07:09] LABS: BUN Creatinine Ratio 25.9 (10-20); Calcium 8.8 mg/dl (8.6-10.3); Creatinine Clr Calc Pharmacy 98.2 ml/min; Potassium 3.8 mmol/L (3.5-5.1)
--- NOTE | 2023-04-03 07:29 | Orthopedic Progress Note ---
Date of Service April 03, 2023 Assessment & Plan (1) S/P shoulder surgery: Plan: POD#1 right TSA, open DCE and SAD -PT/OT-no active shoulder ROM, follow TSA protocol -DVT prophylaxis-SCDs, resume home Plavix once 24hrs post op. -Pain management as written -AM labs-hemoglobin 11.3 from 14 preop, acute blood loss anemia due to surgical loss vs dilutional. Patient is asymptomatic. -D/C planning-plan on D/c home today after PT with HH vs outpatient PT. Admission and Anticipated Discharge Date Admission Date: April 02, 2023 Subjective Patient is POD1 right TSA. Doing well this morning, pain controlled. No complaints. Denies chest pain, sob, dizziness, PARHAM, n/v/d, fever/chills. Review of Systems Review of Systems: All systems reviewed & are unremarkable except as noted in Subjective Physical Exam 2 Physical Exam: Right shoulder: Sling in place. Dressing is c/d/i. Fingers mobile with good test engine evaluator strength. Distally n/v status and sensation grossly intact. Results & Data Vital Signs (Past 12 Hours) Vital Signs Temp Pulse Resp BP Pulse Ox O2 Del Method 04/03/23 03:04 36.7 C 77 16 156/86 H 93 Room Air 04/02/23 23:44 36.5 C 65 16 109/70 92 Room Air Laboratory Results Lab Results 04/03/23 Range/Units 06:10 WBC 7.39 (4.8-10.8) K/ul RBC 3.93 L (4.20-5.40) M/uL Hgb 11.3 L (12.0-16.0) g/dl Hct 32.5 L (37.0-47.0) % MCV 82.7 (80.0-100.0) fL MCH 28.8 (25.0-34.0) pg MCHC 34.8 (32.0-36.0) g/dL RDW Std Deviation 35.6 L (36.4-46.3) fL RDW Coeff of Alonzo 11.8 (11.5-14.5) % Plt Count 156 (130-400) K/uL MPV 9.7 (9.4-12.4) fL Immature Gran % (Auto) 0.4 % Neut % (Auto) 76.0 % Lymph % (Auto) 15.8 % [place] % (Auto) 7.6 % Eos % (Auto) 0.1 % Baso % (Auto) 0.1 % Neut # (Auto) 5.61 (1.40-6.50) K/uL Lymph # (Auto) 1.17 L (1.20-3.40) K/uL [place] # (Auto) 0.56 (0.11-0.59) K/uL Eos # (Auto) 0.01 (0.00-0.50) K/uL Baso # (Auto) 0.01 (0.00-0.20) K/uL Immature Gran # (Auto) 0.03 (0.01-0.20) K/uL Sodium 139 (136-145) mmol/L Potassium 3.8 (3.5-5.1) mmol/L Chloride 106 (98-107) mmol/L Carbon Dioxide 27 (21-32) mmol/L Anion Gap 6 (3-11) BUN 15 (6-23) mg/dl Creatinine 0.58 L (0.6-1.2) mg/dl Est Cr Clr Drug Dosing 98.2 ml/min Est GFR ( Amer) 109.0 ml/min Est GFR (Non-Af Amer) 94.0 ml/min BUN/Creatinine Ratio 25.9 H (10-20) Glucose 122 H (70-99(Fasting)) mg/dl Calcium 8.8 (8.6-10.3) mg/dl
[2023-04-03] MEDS: DOCUSATE SODIUM 100 MG CAP PO SCH (08:40)
[2023-04-03] MEDS ORDERED: MULTIVITAMIN TAB PO SCH (09:00)
--- NOTE | 2023-04-03 12:12 | Hospitalist Progress Note ---
Date of Service April 03, 2023 Assessment & Plan (1) S/P shoulder surgery: Plan: Right total shoulder arthroplasty with subacromial decompression with Dr. Mann on 04/02/23 Perioperative antibiotics, pain management, DVT PPx, and fluids per primary team Hgb 11.3, 14.6 on 03/21. Likely acute blood loss anemia from surgery Electrolytes WNL (2) Dyslipidemia: Plan: Continue rosuvastatin (3) Chronic GERD: Plan: Continue PPI (4) Depression: Plan: Continue sertraline (5) Benign essential hypertension: Plan: Continue amlodipine (6) History of CVA (cerebrovascular accident): Plan: In 1996 Continue Plavix for remote history of TIA/CVD Plan Dispo: medically stable, agree with discharge Thank you for allowing us to participate in the care of this patient, please reach out with any questions or concerns. Admission and Anticipated Discharge Date Admission Date: April 02, 2023 Subjective Patient seen sitting up in the chair. Feeling well, pain starting in shoulder as nerve block is wearing off, but controlled. Good appetite, moving bowels. Review of Systems Review of Systems: All systems reviewed & are unremarkable except as noted in Subjective Physical Exam Physical Exam: General: NAD, VS as above Resp: normal respiratory effort, lungs clear to auscultation CV: RRR, 2/6 systolic murmur , Abd: normal bowel sounds, non tender, no hepatosplenomegaly Extremities: R shoulder brace in place with drain. No edema lower extremities, priscila hose in place. Neuro: A&O x3, Results & Data Results & Data Vital Signs (Past 12 Hours) Vital Signs Temp Pulse Resp BP Pulse Ox O2 Del Method 04/03/23 07:55 36.7 C 63 16 125/76 91 Room Air 04/03/23 03:04 36.7 C 77 16 156/86 H 93 Room Air PG Care Time/CCT Total # of Minutes Spent Total Time Spent with Patient: Total time spent is greater than 50% in coordination of care (as documented) at patient's floor/unit and/or counseling patient: Coding Level of Care Code 43687 SUB INP/OBS CARE 1/25MIN Diagnoses S/P shoulder surgery Z98.890 Dyslipidemia E78.5 Chronic GERD K21.9 Depression F32.9 Benign essential hypertension I10 History of CVA (cerebrovascular accident) Z86.73
--- NOTE | 2023-04-03 14:23 | Discharge Summary ---
Date of Service April 03, 2023 Admission HPI Per Admitting Provider 68yo female with PMHx significant for hx of CVA, HTN, high cholesterol, HTN, hx of cervical Ca who presents with ongoing right shoulder pain. Pain is interfering with her daily activity. She has failed conservative measures and would like to proceed with surgical management. Patient denies headaches, sweats, fevers, chills, double vision, blurred vision, cough, sore throat, dysphagia, chest pain, sob, wheezing, n/v/d/c, numbness, tingling, fatigue, urinary symptoms, mood disorders. ROS positive for right shoulder pain and stiffness. Admission Exam Per Admitting Provider Constitutional: well developed and well nourished; no acute distress Eyes: PERRL, conjunctivae normal, anicteric sclerae ENMT: external ear and nose normal, oropharynx normal Neck: trachea midline, no thyromegaly Respiratory: normal respiratory effort, lungs clear to auscultation Cardiovascular: RRR, no murmur, no edema Musculoskeletal: Right shoulder: Diffuse tenderness. There is pain and stiffness with range of motion. 80 degrees of abduction, 160 degrees of forward flexion, 30 degrees of external rotation. Normal strength. Skin: no rashes, warm and dry Neurologic: patellar DTR's 2+ bilat, sensation intact Psychiatric: A+Ox3, euthymic affect Principal Diagnosis Right shoulder osteoarthritis Discharge Exam Right shoulder: Sling in place. Dressing is c/d/i. Fingers mobile with good floral designer strength. Distally n/v status and sensation grossly intact. Discharge Data Allergies Allergy/AdvReac Type Severity Reaction Status Date / Time No Known Drug Allergies Allergy Unknown Verified 04/02/23 10:34 Consultations 03/30/23 15:43 Consult Hospitalist Routine Procedures Performed Operation Date: 04/02/23 12:05 Actual Procedures p Right Total Shoulder Arthroplasty with Subacromial Decompression, Distal Clavicle Excision and Biceps Tenodesis(Right) - Jason Mann MD Ordered Studies 04/02/23 05:00 US - OR guided needle placemen Routine Hospital Course (1) S/P shoulder surgery: POD#1 right TSA, open DCE and SAD -PT/OT-no active shoulder ROM, follow TSA protocol -DVT prophylaxis-SCDs, resume home Plavix once 24hrs post op. -Pain management as written -AM labs-hemoglobin 11.3 from 14 preop, acute blood loss anemia due to surgical loss vs dilutional. Patient is asymptomatic. -D/C planning-plan on D/c home today after PT with vs outpatient PT. Lab Results 04/03/23 Range/Units 06:10 WBC 7.39 (4.8-10.8) K/ul RBC 3.93 L (4.20-5.40) M/uL Hgb 11.3 L (12.0-16.0) g/dl Hct 32.5 L (37.0-47.0) % MCV 82.7 (80.0-100.0) fL MCH 28.8 (25.0-34.0) pg MCHC 34.8 (32.0-36.0) g/dL RDW Std Deviation 35.6 L (36.4-46.3) fL RDW Coeff of Alonzo 11.8 (11.5-14.5) % Plt Count 156 (130-400) K/uL MPV 9.7 (9.4-12.4) fL Immature Gran % (Auto) 0.4 % Neut % (Auto) 76.0 % Lymph % (Auto) 15.8 % [place] % (Auto) 7.6 % Eos % (Auto) 0.1 % Baso % (Auto) 0.1 % Neut # (Auto) 5.61 (1.40-6.50) K/uL Lymph # (Auto) 1.17 L (1.20-3.40) K/uL [place] # (Auto) 0.56 (0.11-0.59) K/uL Eos # (Auto) 0.01 (0.00-0.50) K/uL Baso # (Auto) 0.01 (0.00-0.20) K/uL Immature Gran # (Auto) 0.03 (0.01-0.20) K/uL Sodium 139 (136-145) mmol/L Potassium 3.8 (3.5-5.1) mmol/L Chloride 106 (98-107) mmol/L Carbon Dioxide 27 (21-32) mmol/L Anion Gap 6 (3-11) BUN 15 (6-23) mg/dl Creatinine 0.58 L (0.6-1.2) mg/dl Est Cr Clr Drug Dosing 98.2 ml/min Est GFR ( Amer) 109.0 ml/min Est GFR (Non-Af Amer) 94.0 ml/min BUN/Creatinine Ratio 25.9 H (10-20) Glucose 122 H (70-99(Fasting)) mg/dl Calcium 8.8 (8.6-10.3) mg/dl Total Time Total Time Spent Total Time Spent (In Minutes): 20 Discharge Plan Discharge Items Patient Disposition: Home - Home Health Services Reason For Visit: POST OP Discharge Diagnosis: Right shoulder osteoarthritis Activity: Per Instructions section Non-emergency contact: Surgeon Call non-emergency contact if: you have any medication questions, your pain is not controlled, you have a fever, your temperature is above 101, your wound has increased redness and your wound has increased drainage Follow-up/Referrals: Baltazar Gandhi MD [Primary Care Provider] - Diet: Regular Addtl Attending Provider Instructions: ACTIVITY RECOMMENDATIONS: SELF CARE INSTRUCTIONS AFTER TOTAL SHOULDER ARTHROPLASTY A. You may do daily exercises as taught in physical therapy while in hospital. No lifting with the operative arm. Please schedule your outpatient physical therapy appointment to begin within 2-3 days after leaving the hospital. Specific restrictions will be written on your physical therapy prescription that is provided to you. B. You are to wear your sling/immobilizer at all times EXCEPT when performing your daily exercises, participating in physical therapy and for hygiene purposes. C. You may perform dry, daily dressing changes. Please keep your incision covered. You may shower 48 hours after surgery. Do not apply soap or any ointment/lotions directly over incision. Do not soak incision in bath tub/swimming pool. D. You may use ice as needed to operative shoulder. SPECIAL CARE INSTRUCTIONS: VERY IMPORTANT TO READ AND REVIEW A. There are a few signs you need to watch for after you are home. Call [facility] at [phone] if you experience any of the followin. Increased severe shoulder pain. Some pain is expected especially when you exercise. 2. Increased swelling in you shoulder or arm; pain or swelling in either upper extremity. 3. Any fluid drainage from the incision. 4. Shortness of breath or chest pain. B. Please call [facility] at [phone] if you have any questions or concerns about your operation or recovery. C. Call your physician if: 1. Temperature is greater than 101 degrees (F). 2. Pain is not relieved by prescribed pain medications. 3. Increase drainage or redness from incision. 4. Unanswered questions or concerns. FOLLOW UP VISIT: Please call [facility] at [phone] to schedule a follow up appointment with Dr. Mann or his PA in 12-14 days from your surgery date. Stand-Alone Forms: My [facility] [employer], Smoking Cessation Medications and DC Order Prescriptions: New acetaminophen [Tylenol Extra Strength] 500 mg Tablet 1,000 mg PO Q8 Qty: 60 0RF oxycodone 5 mg Tablet 5 - 10 mg PO .Q4h-6h MDD 6 PRN (Reason: pain) Qty: 30 0RF Rx Instructions: Ongoing therapy, Dr. Mann supervising Continued rosuvastatin 20 mg tablet 20 mg PO QPM Qty: 90 3RF sertraline 100 mg tablet 200 mg PO HS Qty: 180 3RF diclofenac sodium 1 % gel 4 g topical QID PRN (Reason: shoulder pain) Qty: 200 11RF calcium polycarbophil [FiberCon] 625 mg Tablet 1,250 mg PO QPM clopidogrel 75 mg tablet 75 mg PO QPM amlodipine 10 mg tablet 10 mg PO QPM omeprazole 20 mg capsule,delayed release(DR/EC) 20 mg PO QAM PRN (Reason: gerd) Krames/Other Patient Handouts: DVT Post Op Prevention Admission Data Admit Date/Time: 04/02/23 15:12 Attending Provider: Jason Mann Admit Provider: Jason Mann Primary Care Provider: Baltazar Gandhi Other Providers: Otoniel Engle Other Interventions: Discharge Summary Assessment (RN) Last Done: 04/03/23 12:47
[2023-04-03] MEDS ORDERED: CLOPIDOGREL BISULFATE 75 MG TAB PO SCH (21:00)
[2023-04-03] MEDS ORDERED: amLODIPine BESYLATE 5 MG TAB PO SCH (21:00)
== END 2023-04-03 14:16 | disposition home health service (06) ==
LOC: 3E 10:05 → ASU 10:05